=== PATIENT | male | born 1950 | race Caucasian/White ===

== ENCOUNTER 2018-12-09 11:33 | Emergency (ER) | payer MEDICARE, OTHER ==
[~2018-12-09] VITALS: Ht 172.7 cm; Wt 95.7 kg
--- NOTE | 2018-12-09 12:15 | RAD ---
VENOUS LOWER EXTREMITY LEFT History: Left leg swelling. Comparison: None. Discussion: Multiple longitudinal and transverse high resolution real-time images of the venous system of left lower extremity were obtained with color and Doppler sampling. The common femoral, superficial femoral, popliteal and proximal calf veins are all patent and demonstrate normal flow and compressibility. Normal respiratory phasicity and augmentation is present. Impression: 1. No evidence of left deep vein thrombosis. Electronically signed by: Etienne Benavides DO (12/09/2018 12:12 PM) [facility]
[2018-12-09] MEDS ORDERED: FURO-69 PO (12:31)
[2018-12-09] MEDS ORDERED: SULF1TAB24 PO (12:31)
--- NOTE | 2018-12-09 12:31 | PHYS DOC ---
Past History Past Medical History: Anxiety, GERD, High Cholesterol, Hypertension Past Surgical History: Other Additional Past Surgical Histo: BACK AND NECK, CARPAL TUNNEL, RHINOPLASTY, ULNAR DECOMPRESSION Alcohol Use: None Drug Use: None Adult General Chief Complaint Chief Complaint: ANKLE PROBLEM HPI HPI Patient is a 68-year-old male presents complaining of left lower extremity swelling. This started week and a half ago. No trauma. No difficulty breathing. No chest pain or palpitations. Patient over the past several days has driven from [place] to [facility]. Denies any fever. Denies any trauma. Nothing makes the symptoms better or worse. Symptoms are mild to moderate. Patient's partner has had previous DVT. Patient has no PE risk factors other than the stasis/travel. Patient reports that he did get out repeatedly from the car, no segments longer than 3 hours.[] Review of Systems Review of Systems Constitutional: Denies fever or chills [] Eyes: Denies change in visual acuity, redness, or eye pain [] HENT: Denies nasal congestion or sore throat [] Respiratory: Denies cough or shortness of breath [] Cardiovascular: No chest pain or palpitations[] GI: Denies abdominal pain, nausea, vomiting, bloody stools or diarrhea [] : Denies dysuria or hematuria [] Musculoskeletal: Denies back pain, see history of present illness[] Integument: Denies rash or skin lesions [] Neurologic: Denies headache, focal weakness or sensory changes [] Endocrine: Denies polyuria or polydipsia [] All other systems were reviewed and found to be within normal limits, except as documented in this note. Allergies Allergies Allergies Coded Allergies Type Severity Reaction Last Updated Verified No Known Drug Allergies 12/09/18 No Physical Exam Physical Exam Constitutional: Well developed, well nourished, no acute distress, non-toxic ap pearance. [] HENT: Normocephalic, atraumatic, bilateral external ears normal, oropharynx moist, no oral exudates, nose normal. [] Eyes: PERRLA, EOMI, conjunctiva normal, no discharge. [] Neck: Normal range of motion, no tenderness, supple, no stridor. [] Cardiovascular:Heart rate regular rhythm, no murmur [] Lungs & Thorax: Bilateral breath sounds clear to auscultation [] Abdomen: Not examined[] Skin: Warm, dry, no erythema, no rash. [] Back: No tenderness, no CVA tenderness. [] Extremities: No tenderness, no cyanosis, no clubbing, ROM intact, left leg is swollen compared with the right. 1+ pretibial edema. Patient is distally neurovascularly intact. There is no cracking or skin breakdown between the toes. No inguinal lymphadenopathy is present. No medial or lateral malleolus tenderness. No knee tenderness. Patient has a normal gait.[] Neurologic: Alert and oriented X 3, normal motor function, normal sensory function, no focal deficits noted. [] Psychologic: Affect normal, judgement normal, mood normal. [] Current Patient Data Vital Signs Vital Signs Date Time Temp Pulse Resp B/P (MAP) Pulse Ox O2 Delivery O2 Flow Rate FiO2 12/09/18 11:40 97.9 69 20 95 Room Air EKG EKG [] Radiology/Procedures Radiology/Procedures PROCEDURE: VENOUS LOWER EXTREMITY LEFT VENOUS LOWER EXTREMITY LEFT History: Left leg swelling. Comparison: None. Discussion: Multiple longitudinal and transverse high resolution real-time images of the venous system of left lower extremity were obtained with color and Doppler sampling. The common femoral, superficial femoral, popliteal and proximal calf veins are all patent and demonstrate normal flow and compressibility. Normal respiratory phasicity and augmentation is present. Impression: 1. No evidence of left deep vein thrombosis.[] Course & Med Decision Making Course & Med Decision Making Pertinent Labs and Imaging studies reviewed. (See chart for details) ED course: Patient arrived, was placed in bed, and tolerated exam well. He was transferred to and from [facility] with any complications. After return of the ultrasound findings, these were discussed with the patient and family who voiced understanding. All questions were answered. He was discharged in improved condition. Medical decision making: Patient with left lower extremity swelling for the past week and a half, even before traveling. There is no evidence of a DVT. No evidence of systemic toxicity. No abnormal breath sounds consistent with congestive heart failure. Will cover with a short course diuretic, as well as recommend compression socks. Will also cover for the possibility of a cellulitis.[] Dragon Disclaimer Dragon Disclaimer This electronic medical record was generated, in whole or in part, using a voice recognition dictation system. Departure Departure: Impression: Primary Impression: Left leg swelling Disposition: 01 HOME, SELF-CARE Condition: IMPROVED Referrals: PCP,UNKNOWN (PCP) Patient Instructions: Peripheral Edema Additional Instructions: Follow-up with your regular doctor in 2 days. If you do not have a regular doctor, list of local clinics will be provided for you. Wear compression socks during the course of the day. Take them off at nighttime. Take the medication as prescribed. Return to the ER if worsening pain, swelling, difficulty breathing, fever of more than 101, or any other concerns. Scripts Furosemide (LASIX) 20 Mg Tablet 1 TAB PO DAILY for peripheral edema, #5 TAB Prov: RADHA FORD DO 12/09/18 Sulfamethoxazole/Trimethoprim (BACTRIM DS TABLET) 1 Each Tablet 1 TAB PO BID for cellulitis, #20 TAB Prov: RADHA FORD DO 12/09/18 RADHA FORD DO Dec 09, 2018 12:31
[2018-12-09 12:35] VITALS: BP 142/84
== END 2018-12-09 12:37 | disposition home or self-care (01) ==
LOC: ER 11:33
DX: R22.42 Localized swelling, mass and lump, left lower limb (principal); K21.9 Gastro-esophageal reflux disease without esophagitis; E78.00 Pure hypercholesterolemia, unspecified; I10 Essential (primary) hypertension
CPT/HCPCS: 93971; 99284-25; 99285-25